=== PATIENT | female | born 1960 ===

== ENCOUNTER 2023-07-08 09:36 | Outpatient (RCR) | payer MEDICARE, SELFPAY | END 2023-08-07 11:35 | disposition home or self-care (01) | LOC: MM 09:36 | PROVIDERS: Visit Provider Internal Medicine | DX: Z51.81 Encounter for therapeutic drug level monitoring (principal); Z79.01 Long term (current) use of anticoagulants; I48.20 Chronic atrial fibrillation, unspecified | CPT/HCPCS: 85610; G0463 ==

== ENCOUNTER 2023-08-10 03:10 | Outpatient (RCR) | payer MEDICARE, SELFPAY | END 2023-09-04 10:08 | disposition home or self-care (01) | LOC: MM 03:10 | PROVIDERS: Visit Provider Internal Medicine | DX: Z51.81 Encounter for therapeutic drug level monitoring (principal); Z79.01 Long term (current) use of anticoagulants; I48.20 Chronic atrial fibrillation, unspecified ==

== ENCOUNTER 2023-09-07 00:19 | Outpatient (RCR) | payer MEDICARE, SELFPAY | END 2023-10-07 23:59 | disposition home or self-care (01) | LOC: MM 00:19 | PROVIDERS: Visit Provider Internal Medicine | DX: Z51.81 Encounter for therapeutic drug level monitoring (principal); Z79.01 Long term (current) use of anticoagulants; I48.20 Chronic atrial fibrillation, unspecified ==

== ENCOUNTER 2024-02-08 04:33 | Outpatient (RCR) | payer MEDICARE, SELFPAY | END 2024-03-08 09:27 | disposition home or self-care (01) | LOC: MM 04:33 | PROVIDERS: Visit Provider Internal Medicine | DX: Z51.81 Encounter for therapeutic drug level monitoring (principal); Z79.01 Long term (current) use of anticoagulants; I48.20 Chronic atrial fibrillation, unspecified ==

== ENCOUNTER 2024-03-10 00:55 | Outpatient (RCR) | payer MEDICARE, SELFPAY | END 2024-04-08 14:42 | disposition home or self-care (01) | LOC: MM 00:55 | PROVIDERS: Visit Provider Internal Medicine | DX: Z51.81 Encounter for therapeutic drug level monitoring (principal); Z79.01 Long term (current) use of anticoagulants; I48.20 Chronic atrial fibrillation, unspecified ==

== ENCOUNTER 2024-04-11 02:26 | Outpatient (RCR) | payer MEDICARE, SELFPAY | END 2024-05-06 13:38 | disposition home or self-care (01) | LOC: MM 02:26 | PROVIDERS: Visit Provider Internal Medicine | DX: Z51.81 Encounter for therapeutic drug level monitoring (principal); Z79.01 Long term (current) use of anticoagulants; I48.20 Chronic atrial fibrillation, unspecified ==

== ENCOUNTER 2024-05-07 12:33 | Outpatient (RCR) | payer MEDICARE, SELFPAY | END 2024-06-03 12:36 | disposition home or self-care (01) | LOC: MM 12:33 | PROVIDERS: Visit Provider Internal Medicine | DX: Z51.81 Encounter for therapeutic drug level monitoring (principal); Z79.01 Long term (current) use of anticoagulants; I48.20 Chronic atrial fibrillation, unspecified ==

== ENCOUNTER 2024-06-07 05:38 | Outpatient (RCR) | payer MEDICARE, SELFPAY | END 2024-07-06 16:09 | disposition home or self-care (01) | LOC: MM 05:38 | PROVIDERS: Visit Provider Internal Medicine | DX: Z51.81 Encounter for therapeutic drug level monitoring (principal); Z79.01 Long term (current) use of anticoagulants; I48.20 Chronic atrial fibrillation, unspecified ==

== ENCOUNTER 2024-07-07 04:40 | Outpatient (RCR) | payer MEDICARE, SELFPAY | END 2024-08-05 15:22 | disposition home or self-care (01) | LOC: MM 04:40 | PROVIDERS: Visit Provider Internal Medicine | DX: I48.20 Chronic atrial fibrillation, unspecified (principal); Z51.81 Encounter for therapeutic drug level monitoring; Z79.01 Long term (current) use of anticoagulants ==

== ENCOUNTER 2024-08-07 08:06 | Outpatient (RCR) | payer MEDICARE, SELFPAY | END 2024-09-01 14:55 | disposition home or self-care (01) | LOC: MM 08:06 | PROVIDERS: Visit Provider Internal Medicine | DX: Z51.81 Encounter for therapeutic drug level monitoring (principal); Z79.01 Long term (current) use of anticoagulants; I48.20 Chronic atrial fibrillation, unspecified ==

== ENCOUNTER 2024-09-06 02:26 | Outpatient (RCR) | payer MEDICARE, SELFPAY | END 2024-10-06 16:55 | disposition home or self-care (01) | LOC: MM 02:26 | PROVIDERS: Visit Provider Internal Medicine | DX: Z51.81 Encounter for therapeutic drug level monitoring (principal); Z79.01 Long term (current) use of anticoagulants; I48.20 Chronic atrial fibrillation, unspecified ==

== ENCOUNTER 2024-10-07 00:11 | Outpatient (RCR) | payer MEDICARE, SELFPAY | END 2024-11-03 12:47 | disposition home or self-care (01) | LOC: MM 00:11 | PROVIDERS: Visit Provider Internal Medicine | DX: Z51.81 Encounter for therapeutic drug level monitoring (principal); Z79.01 Long term (current) use of anticoagulants; I48.20 Chronic atrial fibrillation, unspecified ==

== ENCOUNTER 2024-11-07 01:48 | Outpatient (RCR) | payer MEDICARE, SELFPAY | END 2024-12-06 15:36 | disposition home or self-care (01) | LOC: MM 01:48 | PROVIDERS: Visit Provider Internal Medicine | DX: Z51.81 Encounter for therapeutic drug level monitoring (principal); Z79.01 Long term (current) use of anticoagulants; I48.20 Chronic atrial fibrillation, unspecified ==

== ENCOUNTER 2024-12-07 04:32 | Outpatient (RCR) | payer MEDICARE, SELFPAY | END 2025-01-06 23:59 | disposition home or self-care (01) | LOC: MM 04:32 | PROVIDERS: Visit Provider Internal Medicine | DX: Z51.81 Encounter for therapeutic drug level monitoring (principal); Z79.01 Long term (current) use of anticoagulants; I48.20 Chronic atrial fibrillation, unspecified ==

== ENCOUNTER 2025-01-07 | Outpatient (RCR) | payer MEDICARE, SELFPAY | END 2025-02-05 23:59 | disposition home or self-care (01) | LOC: MM | PROVIDERS: Visit Provider Internal Medicine | DX: Z51.81 Encounter for therapeutic drug level monitoring (principal); Z79.01 Long term (current) use of anticoagulants ==

== ENCOUNTER 2025-02-06 11:14 | Outpatient (RCR) | payer MEDICARE, SELFPAY | END 2025-03-08 13:08 | disposition home or self-care (01) | LOC: MM 11:14 | PROVIDERS: Visit Provider Internal Medicine | DX: Z51.81 Encounter for therapeutic drug level monitoring (principal); Z79.01 Long term (current) use of anticoagulants; I48.20 Chronic atrial fibrillation, unspecified ==